=== PATIENT | female | born 1995 | race Caucasian/White ===

== ENCOUNTER 2022-12-30 19:09 | Emergency (ER) | payer MEDICAID, SELFPAY ==
[2022-12-30 19:10] VITALS: BP 136/90; PULSE 79; PULSE 94; RESP 16; RESP 17; TEMP 36.7; O2SAT 97; O2SAT 99; BMI 27.7
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
[2022-12-30] MEDS: Ibuprofen 400 MG Tablet 800 MG PO (20:03)
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
== END 2022-12-30 22:49 | disposition home or self-care (01) ==
PROVIDERS: Emergency Provider Emergency Medicine; Visit Provider Emergency Medicine
DX: S39.012A Strain of muscle, fascia and tendon of lower back, initial encounter (principal); S60.00XA Contusion of unspecified finger without damage to nail, initial encounter; V43.62XA Car passenger injured in collision with other type car in traffic accident, initial encounter
CPT/HCPCS: 72100; 99284